=== PATIENT | male | born 1965 | race Asian ===

== ENCOUNTER 2021-04-13 21:47 | Emergency (ER) | payer OTHER ==
[2021-04-25 08:46] LABS: PLATELET COUNT 235 K/uL (142-355)
[2021-04-29] MEDS ORDERED: DIVA250T PO (08:50)
[2021-04-29] MEDS ORDERED: DIVA125C PO (08:51)
[2021-04-29] MEDS ORDERED: LEVO0.0218 PO (08:51)
[2021-04-29] MEDS ORDERED: CITA20TA2 PO (08:51)
[2021-04-29] MEDS ORDERED: DONE5TAB PO (08:51)
[2021-04-29] MEDS ORDERED: AMLODIPINE BESYLATE PO (08:52)
[2021-04-29] MEDS ORDERED: ASA LOW DOSE81 MG PO (08:52)
[2021-04-29] MEDS ORDERED: NAMENDA10 MG PO (08:53)
[2021-04-29] MEDS ORDERED: PROVERA10 MG PO (08:53)
[2021-04-29] MEDS ORDERED: METF500T PO (08:54)
[2021-04-29] MEDS ORDERED: METO-837 PO (08:54)
[2021-04-29] MEDS ORDERED: POTASSIUM CHLO20 MEQ PO (08:55)
[2021-04-29] MEDS ORDERED: LIPITOR40 MG PO (08:55)
[2021-04-29] MEDS ORDERED: FURO20TA67 PO (08:55)
[2021-04-29] MEDS ORDERED: OLAN2.5T2 PO (08:56)
[2021-04-29] MEDS ORDERED: TOPAMAX50 MG PO (08:56)
[2021-04-29] MEDS ORDERED: LACTSYP31 PO (08:57)
== END 2021-04-14 01:15 | disposition other institution (70) ==
LOC: ED 21:47
PROVIDERS: Family Medicine
DX: F65.89 Other paraphilias (principal); Z11.52 Encounter for screening for COVID-19; Z04.6 Encounter for general psychiatric examination, requested by authority
CPT/HCPCS: 80053; 85027; 87635; 93005; 99283; U0003